=== PATIENT | female | born 1985 | race Caucasian/White ===

== ENCOUNTER 2017-02-20 21:50 | Inpatient (IN) | payer OTHER ==
--- NOTE | ~2017-02-20 | OR ---
ADMIT: 02/20/2017 RM/LOC: 222 [facility] MR#: [id number] [address] [place] [id number] NATALI MADRID [address] [place] [address] Operative/Delivery Room Report SEX: F AGE: 31 : 1985 SURGERY DATE: 02/21/2017 SURGEON: Nandini Anderson MD NAME OF PROCEDURE: Spontaneous vaginal delivery. PREOPERATIVE DIAGNOSES: 1. Intrauterine at 39-4/7th weeks' gestation. 2. Active labor. 3. Rh negative. POSTOPERATIVE DIAGNOSES: 1. Intrauterine at 39-4/7th weeks' gestation. 2. Active labor. 3. Rh negative. FINDINGS: Liveborn female , scores 8 at 1 minute, 9 at 5 minutes. Weight 7 pounds 13 ounces. ESTIMATED BLOOD LOSS: 200 mL. ANESTHESIA: Epidural. COMPLICATIONS: None. INDICATIONS FOR PROCEDURE: The patient is a 31-year-old 5, para 1-0-3- 1, who presented to Labor and Delivery at 39-4/7th weeks' gestation with complaints of contractions. The patient was noted to be in active labor. The patient progressed spontaneously through labor to completely dilated and pushed, bringing the infant's vertex to the perineum. DESCRIPTION OF PROCEDURE: The patient was noted to be complete and pushed, and the infant's vertex delivered at the perineum. The patient pushed and the ADMIT: 02/20/2017 RM/LOC: 222 [facility] MR#: [id number] [facility] [address] [address] NATALI MADRID [address] [place] [address] Operative/Delivery Room Report SEX: F AGE: 31 : 1985 infant's vertex delivered in the ELENA position over midline. She continued to push. The anterior shoulder delivered, the posterior shoulder followed, and the remainder of the delivered without difficulty as well. The was dried and was handed off to the mother's abdomen where nursing personnel were in attendance. Twenty units of Pitocin were placed in IV bag to firm the uterus. The cord was clamped and cut. The placenta then delivered intact spontaneously. The cervix was examined, was noted to be free of lacerations. The vaginal vault and perineum were examined and there was noted to be a second-degree midline laceration, which was repaired in the usual fashion. The patient tolerated the procedure well. All sponge and needle counts were correct. The patient and her recovered in the room in stable condition. Nandini Anderson MD/ felipe JOB #: [id number] CC: Nandini Anderson, Attending Physician Nandini Anderson, Family Physician
--- NOTE | ~2017-02-20 | HP ---
ADMIT: 02/20/2017 RM/LOC: 222 [facility] MR#: [id number] [address] [place] [id number] [place] [address] History and Physical SEX: F AGE: 31 : 1985 DATE OF SERVICE: REASON FOR ADMISSION: Contractions. HISTORY OF PRESENT ILLNESS: The patient is a 31-year-old 5, para 1-0- 3-1, who presented to Labor and Delivery at 39 and 4/7th weeks' gestation with estimated date of confinement 02/23/2017. The patient's had been complicated by Rh negative status and history of previous miscarriage x2, but otherwise has been uncomplicated. At the time of admission, the patient complained of contractions. She denied any vaginal bleeding or loss of fluid. LABORATORY DATA: Blood type O negative, antibody screen negative, RPR nonreactive, rubella immune, group B Strep negative, HIV negative, gonorrhea chlamydia negative, and hepatitis B surface antigen negative. PAST MEDICAL HISTORY: History of nephrolithiasis. PAST SURGICAL HISTORY: None. CURRENT MEDICATIONS: vitamins daily. ALLERGIES: NO KNOWN MEDICAL ALLERGIES. FAMILY HISTORY: Mother and father with hypertension and mother with history of cancer. SOCIAL HISTORY: The patient is single. She denies any alcohol, tobacco, or drug use. PHYSICAL EXAMINATION: VITAL SIGNS: Blood pressure 130/72, pulse 104, temperature 96.8, and respirations 18. GENERAL: The patient is alert and oriented, no acute distress. HEART: Regular rate and rhythm without murmurs, gallops, or rubs. LUNGS: Clear to auscultation bilaterally. ADMIT: 02/20/2017 RM/LOC: 222 [facility] MR#: [id number] [address] [place], [place] [id number] NATALI MADRID [address] [place] [address] History and Physical SEX: F AGE: 31 : 1985 ABDOMEN: Soft, nontender, gravid. EXTREMITIES: No edema. No calf tenderness. heart tones are in the 160s with moderate variability and accelerations present. Contractions every 4 to 5 minutes. Cervix 5 cm dilated, 80% effaced, and -2 station. ASSESSMENT AND PLAN: 1. A 31-year-old 5, para 1-0-3-1 at 39 and 4/7th weeks' gestation. 2. Active labor. Plan to admit in labor and anticipate spontaneous vaginal delivery. 3. Rh negative. We will give RhoGAM if indicated . Nandini Anderson MD/ felipe JOB #: [id number] CC: Nandini Anderson, Attending Physician Nandini Anderson, Family Physician
--- NOTE | ~2017-02-20 | FD ---
ADMIT: 02/20/2017 RM/LOC: 222 [facility] MR#: [id number] [address] [address] NATALI MADRID [address] [place] [address] Final Diagnosis SEX: F AGE: 31 : 1985 ADMISSION DATE: 02/20/2017 DISCHARGE DATE: 02/22/2017 FINAL DIAGNOSIS: Intrauterine at term. PROCEDURE: Spontaneous vaginal delivery. Nandini Anderson MD/ daniella JOB #: [id number] CC: Nandini Anderson MD, Attending Physician Nandini Anderson MD, Family Physician
[2017-02-23] MEDS ORDERED: PRENATAL VIT1 TAB PO (16:55)
[2017-02-23] MEDS ORDERED: NIPPLECREAM TP (16:56)
[2017-02-23] MEDS ORDERED: MOTRIN-DPS800 MG PO (16:56)
--- NOTE | 2017-03-28 08:35 | OR ---
ADMIT: 02/20/2017 RM/LOC: 222 [facility] MR#: [id number] [address] [address] [place] [address] Operative/Delivery Room Report SEX: F AGE: 31 : 1985 SURGERY DATE: 02/21/2017 SURGEON: Nandini Anderson MD NAME OF PROCEDURE: Removal of epidural catheter. INDICATIONS FOR PROCEDURE: The patient is a 31-year-old 5, para 1-0-3- 1, who presented to Labor and Delivery at 39 and 4/7th weeks' gestation in active labor. The patient had an epidural placed for pain control during labor. DESCRIPTION OF PROCEDURE: Following spontaneous vaginal delivery, the patient was placed in a sitting position. The patient's epidural was removed without difficulty and the blue tip was noted to be intact. The patient tolerated the procedure well. Nandini Anderson MD/ felipe JOB #: [id number] CC: Nandini Anderson, Attending Physician Nandini Anderson, Family Physician
== END 2017-02-22 12:35 | disposition home or self-care (01) | DRG 775 ==
LOC: 2LDRP 21:50 → BC 21:50 → 2LDRP 22:22 → BC 02-22 08:00 → 2LDRP 02-22 12:35
PROVIDERS: ADMIT Obstetrics & Gynecology
PROC: 3E0234Z Introduction of Serum, Toxoid and Vaccine into Muscle, Percutaneous Approach (ICD-10-PCS; principal; 2017-02-21)
PROC: 0KQM0ZZ Repair Perineum Muscle, Open Approach (ICD-10-PCS; principal; 2017-02-21)
PROC: 10E0XZZ Delivery of Products of Conception, External Approach (ICD-10-PCS; principal; 2017-02-21)
DX: O75.89 Other specified complications of labor and delivery (principal); Z37.0 Single live birth; O70.1 Second degree perineal laceration during delivery; Z3A.39 39 weeks gestation of pregnancy